=== PATIENT | female | born 1990 | race Caucasian/White ===

== ENCOUNTER 2022-01-05 22:01 | Emergency (ER) | payer BC, OTHER ==
[~2022-01-05 22:01] MED LIST: LIDOCAINE PATCH REMOVAL MC SCH
[2022-01-05 22:10] VITALS: BP 107/78; PULSE 99; TEMP 98.3; BMI 22.4
[2022-01-05] MEDS ORDERED: KETOROLAC TROMETHAMINE 30 MG/1 ML VIAL IM ONE (23:20)
[2022-01-05] MEDS ORDERED: diazePAM 5 MG TABLET PO ONE (23:20)
[2022-01-05] MEDS ORDERED: LIDOCAINE 5% TOPICAL PATCH TP ONE (23:21)
[2022-01-05] MEDS ORDERED: LIDOCAINE 5% TOPICAL PATCH ONE (23:24)
[2022-01-05] MEDS ORDERED: KETOROLAC TROMETHAMINE 30 MG/1 ML VIAL ONE (23:25)
[2022-01-05] MEDS ORDERED: diazePAM 5 MG TABLET ONE (23:25)
== END 2022-01-06 00:26 | disposition home or self-care (01) ==
LOC: JERFT 22:01
PROC: 3E023GC Introduction of Other Therapeutic Substance into Muscle, Percutaneous Approach (ICD-10-PCS; principal; 2022-01-05)
DX: M54.2 Cervicalgia (principal)
CPT/HCPCS: 99284-25

== ENCOUNTER 2023-07-21 04:47 | Day surgery (SDC) | payer OTHER ==
[2023-07-17 09:07] VITALS: BMI 24.4
[2023-07-21] MEDS ORDERED: BUPIVACAINE HCL/PF 0.5% (5MG/ML) 10 ML VIAL ONE (07:48)
[2023-07-21] MEDS ORDERED: ACETAMINOPHEN 500 MG TABLET (FP) PO PRN (11:04)
[2023-07-21] MEDS ORDERED: LIDOCAINE HCL 1% PRESERVATIVE FREE - 30ML VIAL IJ ONE (12:30)
[2023-07-21] MEDS ORDERED: BUPIVACAINE HCL/PF 0.5% (5MG/ML) 10 ML VIAL IJ ONE (12:30)
[2023-07-21 16:03] VITALS: BP 101/71; PULSE 76; RESP 18; TEMP 98.2
== END 2023-07-21 13:08 | disposition home or self-care (01) ==
LOC: JASU-SURG 04:47
PROVIDERS: ATTEND Pain Medicine Pain Medicine
PROC: 3E0T3BZ Introduction of Anesthetic Agent into Peripheral Nerves and Plexi, Percutaneous Approach (ICD-10-PCS; principal; 2023-07-21 12:15)
DX: M47.812 Spondylosis without myelopathy or radiculopathy, cervical region (principal)
CPT/HCPCS: 76000-TC-FY; 81025

== ENCOUNTER → 2023-08-18 | Day surgery (SDC) | payer OTHER ==
[2023-08-13 09:19] VITALS: BMI 24.4
[~2023-08-18] MED LIST changes: +ACETAMINOPHEN 500 MG TABLET (FP) PO PRN; +BUPIVACAINE HCL/PF 0.5% (5MG/ML) 10 ML VIAL ONE; +LIDOCAINE HCL/PF 1% SDV 5ML VIAL ONE; -LIDOCAINE PATCH REMOVAL MC SCH
== END | disposition home or self-care (01) ==
LOC: JASU-SURG 04:19
PROVIDERS: ATTEND Pain Medicine Pain Medicine
DX: Z53.8 Procedure and treatment not carried out for other reasons (principal)